=== PATIENT | female | born 1970 | race Caucasian/White ===

== ENCOUNTER → 2019-02-07 09:54 | Outpatient (CLI) | payer BC, SELFPAY | PROVIDERS: PCP Physician Assistant; Visit Provider Physician Assistant | DX: R00.2 Palpitations (principal) | CPT/HCPCS: 93005; 93225; 93226 ==

== ENCOUNTER → 2019-03-05 07:59 | Outpatient (CLI) | payer BC, SELFPAY | PROVIDERS: PCP Emergency Medicine; Visit Provider Internal Medicine | DX: R00.2 Palpitations (principal); R94.31 Abnormal electrocardiogram [ECG] [EKG] | CPT/HCPCS: 93017; 93306 ==

== ENCOUNTER → 2019-03-12 07:49 | Outpatient (CLI) | payer BC, SELFPAY ==
--- NOTE | 2019-03-12 07:50 | NM_ITS ---
SPECT MYOCARDIAL PERFUSION SCAN, REST AND STRESS: EXERCISE STRESS: [facility] REVIEW QGS EF AND WALL MOTION EVALUATION: QPS - PERFUSION EVALUATION: HISTORY: Abnormal GXT, Fatigue, Family History PROCEDURE: Rest imaging performed after administration of10.24 millicuries Tc MIBI. Dose administered at8:15 a.m., with imaging thereafter. Stress imaging was then performed following6 minutes 30 seconds of exercise stress. The patient achieved a heart [id number] with projected heart rate of145 . Resting BP161/82 with stress 178/70. At maximum exercise stress,32.8 millicuries Tc MIBI administered at9:15 a.m. with [id number] minutes thereafter. FINDINGS: Perfusion Evaluation: The single slice spect images as well as the [facility] bull's-eye data summary were reviewed. Wall Motion and Ejection Fraction Evaluation: Gated SPECT review and analysis used to evaluate these features. There is a 54 % left ventricular ejection fraction. The anterior apical wall appears mildly hypokinetic Stress images reveal decreased activity in the anterior wall while rest images reveal improved activity. IMPRESSION: Reversible ischemia in the anterior wall with normal ejection fraction with mild regional wall motion abnormality. High risk abnormal stress
--- NOTE | 2019-03-12 08:47 | HMH.ITSHM ---
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 []ASA BISOPROLOL
== END ==
PROVIDERS: PCP Physician Assistant; Visit Provider Internal Medicine
DX: I47.2 Ventricular tachycardia (principal); R00.2 Palpitations; R94.31 Abnormal electrocardiogram [ECG] [EKG]
CPT/HCPCS: 78452; 93017; A9502

== ENCOUNTER → 2019-03-14 10:52 | Outpatient (CLI) | payer BC, SELFPAY ==
--- NOTE | 2019-03-14 10:54 | MM_ITS ---
MM Dig screening mamm BI w/CAD ORDERING PHYSICIAN : DAVID Cuevas PATIENT AGE: 48 years GENDER: Female COMPARISON: February 2003 film screen; & April 2011 digital mammogram INDICATION: ITS.Routine: Screening mammogram No hormones. No new complaints. Family history. Maternal grandmother TECHNIQUE: Standard CC and MLO images were obtained. R2 CAD reviewed. FINDINGS: Low-density breast with generalized fatty replacement.. Only minimal residual fibroglandular elements extending towards upper outer quadrant of right and left breast. Stable tiny lymph nodes at the deep axillary tail left breast again observed . No dominant mass nor suspicious calcifications in either breast. Follow-up in one year adequate CAD computer review highlights no areas of concern either. --------- IMPRESSION: Stable mammogram. Low-density breastWith No significant change. No new areas of concern. Routine follow-up. BI-RADS Category: 1 Negative RECOMMENDED FOLLOW-UP: 1YR 1 YEAR FOLLOW-UP (A letter has been sent to the patient regarding results of the study.)
== END ==
PROVIDERS: PCP Physician Assistant; Visit Provider Physician Assistant
DX: Z12.31 Encounter for screening mammogram for malignant neoplasm of breast (principal)
CPT/HCPCS: 77067

== ENCOUNTER → 2019-05-01 11:25 | Outpatient (CLI) | payer BC, SELFPAY ==
--- NOTE | 2019-05-01 11:29 | XR_ITS ---
EXAM: XR thoracic spine 3V HISTORY: ITS.REASON: pain Comparison: None FINDINGS: Normal alignment. No fracture or dislocation. No lytic or blastic change. There are small anterior osteophytes in the midthoracic spine. No other significant degenerative changes evident. IMPRESSION: Mild degenerative change, no acute finding
== END ==
PROVIDERS: PCP Nurse Practitioner Family; Visit Provider Nurse Practitioner Family
DX: M54.6 Pain in thoracic spine (principal)
CPT/HCPCS: 72072

== ENCOUNTER 2019-05-13 07:48 | Outpatient (RCR) | payer BC, SELFPAY ==
--- NOTE | 2019-05-13 08:40 | HMH.PTOPEV ---
PT Outpatient Evaluation Rehab PT Outpatient Evaluation Start: 05/13/19 08:12 Freq: Status: Active Protocol: Document 05/13/19 08:29 BELEMANALISA (Rec: 05/13/19 08:39 BELEMANALISA [id number]) Electronically Signed By Geoff Kwok PT 05/13/19 08:29 Outpatient Therapy Subjective History Subjective History This is the initial Physical Therapy evaluation for America Stout. Pt is a 48 y/o female referred to PT for c/o L sided thoracic and L periscapular pain. Pt reports insidious onset of pain ~ 1 month ago. Pt reports she works at [employer] and does a repetitive job. Pt reports her work is the trigger and aggravating factor with her pain. Pt reports no cervical pain, no LUE pain. Chief Complaint Pain Symptom Type Sharp,Stabbing,Burning Symptoms Relieved By Rest/Positioning,Heat Symptoms Aggravated By Physical Activity Prior Functional Limitations None Current Functional Limitations Reaching,Lifting,Recreation Activity Symptom Description Intermittent Level of pain today (0-10) 0 Pain scale - at its best (0-10) 0 Pain scale - at its worst (0-10) 8 Cervical Eval Palpation Cervical Muscles L Thoracic Paraspinals Cervical/Thoracic Palpation Findings Tenderness,Spasm,Muscle Guarding MMT Bilateral Deltoid (C5) 4 Good Biceps Brachii Strength Grade 4 Good Wrist Extension Strength Grade 4 Good Triceps Brachii Strength Grade 4 Good Wrist Flexion Strength Grade 4 Good Special Test C-Spine Foraminal Compression (Spurling) Negative Left,Negative Right Test C-Spine Foraminal Distraction Test Negative C-Spine Compression Test Negative Left,Negative Right Shoulder/Elbow Eval Shoulder Objective Measurements Palpation Tenderness Shoulder Palpation Findings None/Normal Posture Shoulder Posture Sitting Position (L) Rounded,(R) Rounded Shoulder Posture Standing Position (L) Rounded,(R) Rounded Scapula Posture Sitting Position (L) Protracted,(R) Protracted Scapular Posture Standing Position (L) Protracted,(R) Protracted Shoulder ROM Bilateral full ROM shoulder exam standard bilateral Shoulder MMT Shoulder Strength Reason Not Measured WFL Elbow Objective Measurements Lumbopelvic Eval Posture Thoracic Spine Posture Standing Position Increased Kyphosis Lumbar Spine Posture Standing Position Flattened Assistive device Assistive Devices
== END 2019-05-13 07:50 | disposition home or self-care (01) ==
LOC: PT 07:48
PROVIDERS: Visit Provider Nurse Practitioner Family
DX: M54.2 Cervicalgia (principal); M25.511 Pain in right shoulder
CPT/HCPCS: 97163

== ENCOUNTER → 2019-12-31 11:14 | Outpatient (CLI) | payer BC, SELFPAY ==
[2019-12-31 11:31] LABS: Basophils % 0.5 % (0.1-2.0); Eosinophils # 0.1 K/mm3 (0.0-0.4); Eosinophils % 1.8 % (0.1-12.0); Hematocrit 33.4 % (37.0-47.0); Hemoglobin 10.7 g/dL (12.2-16.2); Lymphocytes # 1.4 K/mm3 (0.7-4.5); Lymphocytes % 34.2 % (10-50); Mean Corpuscular HGB Conc 32.1 g/dL (31.8-35.4); Mean Corpuscular Hemoglobin 28.3 pg (27.0-31.2); Mean Corpuscular Volume 88.1 fl (81-99); Mean Platelet Volume 9.2 fl (7.4-10.4); Monocytes # 0.3 K/mm3 (0.1-1.0); Monocytes % 6.4 % (1.7-9.3); Neutrophils # 2.3 K/mm3 (1.8-7.8); Neutrophils % 57.2 % (37.0-80.0); Platelet Count 186 K/mm3 (142-424); Red Cell Distribution Width 13.9 % (11.5-17.5)
[2019-12-31 14:22] LABS: Alanine Aminotransferase 17 U/L (9-52); Albumin Level 3.5 g/dL (3.4-5.0); Alkaline Phosphatase 76 U/L (46-116); Anion Gap 11.2 mEq/L (5-15); Aspartate Amino Transferase 20 U/L (15-37); Bilirubin,Direct 0.1 mg/dL (0.0-0.2); Bilirubin,Indirect 0.3 mg/dL (0.0-0.9); Bilirubin,Total 0.4 mg/dL (0.2-1.0); Blood Urea Nitrogen 9 mg/dL (7-18); Calcium 8.6 mg/dL (8.5-10.1); Carbon Dioxide 29 mmol/L (21.0-32.0); Chloride 108 mmol/L (98-107); Chol/HDL Ratio 3.5 (1-3.5); Cholesterol 166 mg/dL (140-200); Creatinine,Serum 0.68 mg/dL (0.55-1.02); Estimated Glomerular Filt Rate 92 ml/min (>60); GFR (African American) 111 ML/MIN (>60); Glucose 86 mg/dL (74-106); HDL Cholesterol 48 mg/dL (29-89); LDL Cholesterol 106 mg/dL (0-130); Potassium 4.2 mmoL/L (3.5-5.1); Sodium 144 mmol/L (137-145); Total Protein,Serum 6.9 g/dL (6.4-8.2); Triglycerides 62 mg/dL (30-200); VLDL Cholesterol 12 mg/dL (0-40)
== END ==
PROVIDERS: Visit Provider Physician Assistant
DX: R00.2 Palpitations (principal); I10 Essential (primary) hypertension; R94.39 Abnormal result of other cardiovascular function study; I34.0 Nonrheumatic mitral (valve) insufficiency
CPT/HCPCS: 36415; 80048; 80061; 80076; 85025

== ENCOUNTER → 2020-01-21 09:40 | Outpatient (CLI) | payer BC, SELFPAY ==
--- NOTE | 2020-01-21 09:46 | XR_ITS ---
PROCEDURE: XR CERVICAL SPINE 4V CLINICAL INDICATION: LUE numbness COMPARISON: No exams were available for comparison FINDINGS: There is mild degenerative disc disease at C5-C6. The remaining disc spaces are unremarkable. There is normal alignment. No fracture or dislocation. No obvious foraminal narrowing. IMPRESSION: Degenerative disc disease C5-C6 Dictated by: Aroldo Albarado MD 01/21/2020 11:35 Electronically signed by Aroldo Albarado MD in [place] 01/21/2020 11:35
[2020-01-21 18:01] LABS: T4 (Thyroxine) 8.8 ug/dl (5.53-11.0)
[2020-01-21 18:15] LABS: Thyroid Stimulating Hormone 3.81 uIU/mL (0.465-4.68)
[2020-01-23 12:17] LABS: Vitamin D 25 Hydroxy 6.9 ng/mL (30.0-100.0)
[2020-01-24 08:57] LABS: Vitamin B12 179 pg/mL (232-1245)
== END ==
PROVIDERS: PCP Physician Assistant; Visit Provider Physician Assistant
DX: R20.0 Anesthesia of skin (principal); M25.50 Pain in unspecified joint
CPT/HCPCS: 72050; 82607; 82652; 84436; 84443

== ENCOUNTER → 2020-01-29 08:45 | Outpatient (CLI) | payer BC, SELFPAY ==
[2020-01-29 09:34] LABS: Basophils % 0.3 % (0.1-2.0); Eosinophils # 0.1 K/mm3 (0.0-0.4); Eosinophils % 1.3 % (0.1-12.0); Hematocrit 34.8 % (37.0-47.0); Hemoglobin 10.9 g/dL (12.2-16.2); Lymphocytes # 2.5 K/mm3 (0.7-4.5); Lymphocytes % 33.1 % (10-50); Mean Corpuscular HGB Conc 31.5 g/dL (31.8-35.4); Mean Corpuscular Hemoglobin 27.7 pg (27.0-31.2); Mean Corpuscular Volume 87.8 fl (81-99); Mean Platelet Volume 7.8 fl (7.4-10.4); Monocytes # 0.6 K/mm3 (0.1-1.0); Monocytes % 8.3 % (1.7-9.3); Neutrophils # 4.2 K/mm3 (1.8-7.8); Neutrophils % 57.1 % (37.0-80.0); Platelet Count 232 K/mm3 (142-424); Red Blood Count 3.96 M/mm3 (4.20-5.40); Red Cell Distribution Width 14.6 % (11.5-17.5); White Blood Count 7.4 K/mm3 (4.8-10.8)
== END ==
PROVIDERS: Visit Provider Physician Assistant
DX: D64.9 Anemia, unspecified (principal)
CPT/HCPCS: 36415; 85025

== ENCOUNTER → 2020-02-17 09:01 | Outpatient (POV) | payer BC, SELFPAY | PROVIDERS: PCP Physician Assistant; Visit Provider Specialist | DX: M79.602 Pain in left arm (principal); R20.0 Anesthesia of skin; R20.2 Paresthesia of skin | CPT/HCPCS: 95886; 95908 ==

== ENCOUNTER 2020-02-18 08:30 | Outpatient (RCR) | payer BC, SELFPAY ==
--- NOTE | 2020-01-29 08:51 | HMH.PTOPEV ---
PT Outpatient Evaluation Rehab PT Outpatient Evaluation Start: 01/29/20 08:37 Freq: Status: Active Protocol: Document 01/29/20 08:38 SHASHI (Rec: 01/29/20 08:51 SHASHI [id number]) Electronically Signed By Stef Haque, PT 01/29/20 08:38 Outpatient Therapy Subjective History Subjective History Patient is a 49 year old female presenting to outpatient PT with reports of LUE radicular symptoms of insidious onset starting approximatley 1 month ago. Most recent imaging indicate C 5/6 DDD. Main complaint is I can't straighten my elbow out. Comorbidities include MVR. Chief Complaint Pain,Paresthesia Symptom Type Numbness,Tingling Symptoms Relieved By Rest/Positioning Symptoms Aggravated By Physical Activity Prior Functional Limitations None Current Functional Limitations Reaching,Lifting,Housework, Recreation Activity Symptom Description Constant but Variable Level of pain today (0-10) 0 Pain scale - at its best (0-10) 0 Pain scale - at its worst (0-10) 4 Cervical Eval Palpation Cervical Muscles L Upper Trapezius Posture Head/C-Spine Posture Sitting Position Excess Extension Head/C-Spine Posture Standing Position Excess Extension Flexibility Deficits Upper Trapezius Muscle Length (L) Moderate Tightness Levaetor Scapulae Muscle Length (L) Moderate Tightness Pectoralis Minor Muscle Length (L) Moderate Tightness Passive Joint Mobility Cervical PIVM WNL: R OA L OA R AA L AA R C2/3 L C2/3 R C3/4 L C3/4 R C4/5 L C4/5 R C5/6 L C5/6 R C6/7 L C6/7 R C7/T1 L C7/T1 AROM Cervical Spine Extension Active Range of 42 Motion (degrees) Cervical Spine Flexion Active Range of 62 Motion (degrees) Cervical Spine Right Lateral Flexion 35 Active Range of Motion (degrees) Cervical Spine Left Lateral Flexion 25 Active Range of Motion (degrees) Cervical Spine Right Rotation Active WNL
== END 2020-02-18 08:35 | disposition home or self-care (01) ==
LOC: PT 08:30
PROVIDERS: PCP Physician Assistant; Visit Provider Physician Assistant
DX: M50.30 Other cervical disc degeneration, unspecified cervical region (principal)
CPT/HCPCS: 97010; 97012; 97014; 97110; 97163; G0283

== ENCOUNTER → 2020-03-16 08:57 | Outpatient (CLI) | payer BC, SELFPAY ==
--- NOTE | 2020-03-16 08:57 | MM_ITS ---
PROCEDURE: MM DIG SCREENING MAMM BI W/CAD Digital Breast Tomosynthesis Included CLINICAL INDICATION: screening There is a history of breast cancer patient's maternal grandmother. COMPARISON: DIGMAMMS MAMMOGRAM SCREEN-DEPUTY FELONY CLERK N/C from 03/12/2003 [facility] DIGITAL MAMM-SCREEN BILATERAL from 04/25/2011 [facility] MM Dig screening mamm BI w/CAD from 03/14/2019 TECHNIQUE: Standard CC and MLO images and 3D Tomosynthesis was obtained. R2 CAD reviewed. FINDINGS: The breasts are composed primarily of fat with scattered fibroglandular densities throughout both breasts. There is a stable tiny nodular benign-appearing density near the axillary tail left breast likely a low-lying node. There is no suspicious lesion in either breast and no suspicious microcalcifications. IMPRESSION: Fatty type breast parenchyma with no suspicious lesions seen BI-RAD Category: 1 Negative FOLLOW-UP: 1YR 1 Year Follow-up (A letter has been sent to the patient regarding results of the study.) Dictated by: Dr. Pa Diana MD 03/16/2020 10:[address] Pa Diana MD in [place] 03/16/2020 10:29
== END ==
PROVIDERS: PCP Physician Assistant; Visit Provider Physician Assistant
DX: Z12.31 Encounter for screening mammogram for malignant neoplasm of breast (principal)
CPT/HCPCS: 77063; 77067

== ENCOUNTER → 2020-07-07 10:16 | Outpatient (CLI) | payer BC, SELFPAY ==
[2020-07-07 11:35] LABS: Blood Urea Nitrogen 8 mg/dl (7-17); Calcium 9.1 mg/dl (8.4-10.2); Carbon Dioxide 29 mmol/L (22.0-30.0); Chloride 104 mmol/L (98-107); Estimated Glomerular Filt Rate 89 ml/min (>60); GFR (African American) 107 ML/MIN (>60); Glucose 99 mg/dl (74-100); Sodium 138 mmol/L (136-145)
== END ==
PROVIDERS: Visit Provider Nurse Practitioner Family
DX: R60.0 Localized edema (principal); I10 Essential (primary) hypertension; I51.89 Other ill-defined heart diseases
CPT/HCPCS: 36415; 80048

== ENCOUNTER → 2020-07-20 09:21 | Outpatient (CLI) | payer BC, SELFPAY ==
[2020-07-20 10:13] LABS: Anion Gap 10.9 mEq/L (5-15); Blood Urea Nitrogen 9 mg/dl (7-17); Calcium 8.7 mg/dl (8.4-10.2); Carbon Dioxide 28 mmol/L (22.0-30.0); Chloride 105 mmol/L (98-107); Estimated Glomerular Filt Rate 88 ml/min (>60); GFR (African American) 107 ML/MIN (>60); Glucose 99 mg/dl (74-100); Potassium 3.9 mmoL/L (3.5-5.1); Sodium 140 mmol/L (136-145)
[2020-07-20 10:22] LABS: NT Pro Brain Natriuretic Pep. 212 pg/mL (0-125)
== END ==
PROVIDERS: Visit Provider Physician Assistant
DX: R60.0 Localized edema (principal); I10 Essential (primary) hypertension; I51.89 Other ill-defined heart diseases
CPT/HCPCS: 36415; 80048; 83880

== ENCOUNTER → 2020-07-28 09:45 | Outpatient (CLI) | payer BC, SELFPAY ==
[2020-07-28 11:14] LABS: Chloride 104 mmol/L (98-107); Sodium 140 mmol/L (136-145)
[2020-07-28 11:15] LABS: Potassium 4.3 mmoL/L (3.5-5.1)
[2020-07-28 11:17] LABS: Anion Gap 14.3 mEq/L (5-15); Blood Urea Nitrogen 8 mg/dl (7-17); Carbon Dioxide 26 mmol/L (22.0-30.0); Estimated Glomerular Filt Rate 88 ml/min (>60); GFR (African American) 107 ML/MIN (>60)
[2020-07-28 11:18] LABS: Calcium 9.3 mg/dl (8.4-10.2); Glucose 100 mg/dl (74-100)
[2020-07-28 11:25] LABS: NT Pro Brain Natriuretic Pep. 156 pg/mL (0-125)
== END ==
PROVIDERS: Visit Provider Physician Assistant
DX: I50.33 Acute on chronic diastolic (congestive) heart failure (principal); I11.0 Hypertensive heart disease with heart failure; R60.0 Localized edema
CPT/HCPCS: 36415; 80048; 83880

== ENCOUNTER → 2021-03-26 15:00 | Outpatient (CLI) | payer BC, SELFPAY ==
--- NOTE | 2021-03-26 15:02 | CA_ITS ---
APPROVED REPORT EXAM: Comprehensive 2D, Doppler, and color-flow Echocardiogram Wrapping Checker: Tiffanie Almendarez RT(R) Ht: 5 ft 3 in Wt: 217lbs BSA: 2.00 BP: 137/73 mmHg Indications: DD, Palpitations, HTN, MR 2D Dimensions LVOT 1.91 cm (M/F) 1.5-2.5 LA Volume 62.90 mL LA Volume Index 31.45 mL/m2 (M/F) 16-34 M-Mode Dimensions RVDd 3.15 cm (0.9-2.6) LA Diam 3.93 cm (1.9-4.0) LVDd 5.28 cm (3.5-5.7) Ao Diam 2.59 cm (2.0-3.7) LVDs 3.91 cm (3.5-5.7) IVSd 0.80 cm (0.6-1.1) PWd 0.91 cm (0.6-1.1) EF (Teich) 50.60% FS 25.90% EDV (Teich) 134.20 mL ESV (Teich) 66.30 mL LV Diastology E Decel Time 270.00 (160-240 msec) E/A Ratio 1.2 MED E' 6.60 (< 7 cm/sec) E'/MED E' Ratio 21.94 (>14) LAT E' 12.60 (<10 cm/sec) E/LAT E' Ratio 11.49 (>14) Aortic Valve AI PHT 461.00 ms Mitral Valve MV E Max Hermilo. 145.00 (40-130 cm/s) MV A Velocity 118.00 (40-130 cm/s) E/A Ratio 1.23 MV Decel. Time 270.00 (160-240 ms) MV PHT 79.00 ms Tricuspid Valve TR P. Velocity 259.00 cm/s RAP Estimate 10.00 mmHg RVSP 36.80 mmHg Left Ventricle Left atrium is mildly enlarged, left ventricle is normal size, left ventricle wall thickness is upper limit of normal, there is preserved left ventricular systolic function, visually estimated ejection fraction 55% with no regional wall motion abnormality, diastolic parameters are inconclusive. Right Ventricle Right atrium and right ventricle are mildly enlarged with normal contractility. Aortic Valve Aortic valve is minimally thickened and fibrosed there is no aortic stenosis, there is mild aortic insufficiency. Mitral Valve Mitral valve leaflets are minimally thickened, there is no mitral stenosis, there is mild mitral regurgitation. Tricuspid Valve Tricuspid grossly normal, there is mild tricuspid regurgitation, calculated right ventricular systolic pressure 36 mmHg assuming right atrial pressure of 10 mmHg. Pulmonic Valve Pulmonic valve is poorly visualized. Great Vessels Aortic root is normal size. Pericardium No significant pericardial effusion noted. Conclusion 1. Mild biatrial alignment, normal left ventricular size, preserved left ventricular systolic function, visually estimated ejection fraction 55% with no regional wall motion abnormality, diastolic parameters are inconclusive. 2. Mildly enlarged right ventricle with normal contractility. 3. Mild aortic, mild mitral and tricuspid regurgitation, calculated right ventricular systolic pressure is 36 mmHg. 4. No significant pericardial effusion noted. Electronically signed by : César Meyers, 03/26/2021 18:48:56
== END ==
LOC: RT 15:01
PROVIDERS: PCP Physician Assistant; Visit Provider Urology
DX: I34.0 Nonrheumatic mitral (valve) insufficiency (principal); R60.0 Localized edema; I10 Essential (primary) hypertension
CPT/HCPCS: 93306

== ENCOUNTER 2022-01-25 16:51 | Emergency (ER) | payer BC, SELFPAY ==
[2022-01-25 16:52] VITALS: BP 168/78; PULSE 72; RESP 16; TEMP 37.1; O2SAT 100; BMI 38.9
--- NOTE | 2022-01-25 16:52 | ECG_ITS ---
APPROVED REPORT Exam: Resting ECG HR:75 bpm ECG Measurements Heart Rate 75 AXES HI 202 P 49 QRSd 98 QRS 40 QT 382 T 54 QTc 410 Conclusion SINUS RHYTHM NORMAL ECG UNCONFIRMED REPORT Electronically signed by : Jared Mckenna MD 01/26/2022 17:50:46
[2022-01-25 16:53] VITALS: BMI 38.9
--- NOTE | 2022-01-25 16:54 | XR_ITS ---
PROCEDURE INFORMATION: Exam: XR Chest Exam date and time: 01/25/2022 4:54 PM Age: 51 years old Clinical indication: Sternal or substernal pain; Patient HX: Patient developed chest pain while at work. TECHNIQUE: Imaging protocol: XR of the chest. Views: 1 view. COMPARISON: CR XR CHEST 2V 02/07/2020 8:21 PM FINDINGS: Lungs: Unremarkable. No consolidation. Pleural spaces: Unremarkable. No pleural effusion. No pneumothorax. Heart/Mediastinum: Unremarkable. No cardiomegaly. Bones/joints: Unremarkable. IMPRESSION: No acute findings.
--- NOTE | 2022-01-25 17:02 | HMH.EDGENADL ---
ED Disposition Clinical Impression: Atypical chest pain, Palpitations Disposition: Home, Self-Care Condition on Discharge: Good Instructions: DI for Atypical Chest Pain, DI for Palpitations Additional Instructions: Follow-up with Dr. Muñoz in the office. Call tomorrow to make appointment. Additional instructions for CHEST PAIN: See your physician as soon as possible for further evaluation. Return immediately if worsening chest pain, vomiting, shortness of breath, fever, coughing of blood. Referrals: Jorge Ortega MD [Primary Care Provider] - - Critical Care Critical Care Time: No Attestation: On 01/25/22, the high probability of a clinically significant, sudden or life threatening deterioration of the following system(s) required my full and direct attention, intervention and personal management. The time I documented below is in addition to time spent performing reported procedures but includes the following listed in this critical care notation. Medical Decision Making - Medical Records Medical records reviewed: Yes: I reviewed the patient's medical records. MR Comment: Reviewed most recent cardiology clinic note 09/13/2021. Reviewed most recent echocardiogram result ejection fraction 55% 03/26/2021. Reviewed most recent heart cath results, normal coronary arteries 02/20/2020. Reviewed prior Holter monitor result 02/07/19, ectopic beats, but no significant arrhythmias. - Artur Inquiry Pt receiving controlled substance: No Vital Signs: 01/25/22 16:52 01/25/22 17:16 Temperature 98.8 F Temperature Source Oral Pulse Rate 72 Pulse Rate [Right Radial] 72 Respiratory Rate 16 14 Blood Pressure 186/97 H Blood Pressure [Right Arm] 168/78 H Blood Pressure Mean 126 Blood Pressure Mean [Right Arm] 108 Blood Pressure Source [Right Arm] Automatic Cuff Blood Pressure Position [Right Arm] Sitting 02 Sat by Pulse Oximetry 100 100 Oxygen Delivery Method Room Air - Lab Data Lab Results 01/25/22 16:56: WBC 4.4 L, RBC 4.03 L, Hgb 11.2 L, Hct 34.7 L, MCV 86.1, MCH 27.8, MCHC 32.3, RDW 15.3, Plt Count 229, MPV 9.9, Neut % (Auto) 56.8, Lymph % (Auto) 35.3, [place] % (Auto) 5.9, Eos % (Auto) 1.3, Baso % (Auto) 0.7, Neut # (Auto) 2.5, Lymph # (Auto) 1.6, [place] # (Auto) 0.3, Eos # (Auto) 0.1, Baso # (Auto) 0.0 01/25/22 16:56: Sodium 136, Potassium 3.9, Chloride 102, Carbon Dioxide 27, Anion Gap 10.9, BUN 12, Creatinine 0.80, Estimated Creat Clear 125, Estimated GFR 75, Est GFR ( Amer) 91, Glucose 91, Calcium 8.8, Troponin I < 0.01 Result diagrams: 01/25/22 16:56 01/25/22 16:56 Orders (Tests/Meds): ED MEDICATIONS Generic Name Dose Route Start Last Admin Trade Name Freq PRN Reason Stop Dose Admin Sodium Chloride 10 ml 01/25/22 16:54 Sodium Chloride 0.9% 10ml Flush Syringe IV 02/24/22 16:53 NEEDED PRN Maintain IV Site Discontinued Medications Generic Name Dose Route Start Last Admin Trade Name Freq PRN Reason Stop Dose Admin Aspirin 243 mg 01/25/22 16:54 01/25/22 16:59 Aspirin 81mg Chewable Tablet PO 01/25/22 16:55 243 mg ONCE ONE Administration ORDERS Category Date Time Status Troponin I Q3H Lab 01/25/22 20:00 Ordered Troponin I Q3H Lab 01/25/22 23:00 Ordered - Radiology Data #1 Image(s): Chest Image Reviewed: Yes I reviewed the patient's radiology image, Yes I have reviewed radiologist's interpretation Preliminary Findings: Normal/NAD PROCEDURE INFORMATION: Exam: XR Chest Exam date and time: 01/25/2022 4:54 PM Age: 51 years old Clinical indication: Sternal or substernal pain; Patient HX: Patient developed chest pain while at work. TECHNIQUE: Imaging protocol: XR of the chest. Views: 1 view. COMPARISON: CR XR CHEST 2V 02/07/2020 8:21 PM FINDINGS: Lungs: Unremarkable. No consolidation. Pleural spaces: Unremarkable. No pleural effusion. No pneumothorax. Heart/Mediastinum: Unremarkable. No cardiomegaly. Bones
[2022-01-25 17:04] LABS: Basophils % 0.7 % (0.1-2.0); Eosinophils # 0.1 K/mm3 (0.0-0.4); Eosinophils % 1.3 % (0.1-12.0); Hematocrit 34.7 % (37.0-47.0); Hemoglobin 11.2 g/dL (12.2-16.2); Lymphocytes # 1.6 K/mm3 (0.7-4.5); Lymphocytes % 35.3 % (10-50); Mean Corpuscular HGB Conc 32.3 g/dL (31.8-35.4); Mean Corpuscular Hemoglobin 27.8 pg (27.0-31.2); Mean Corpuscular Volume 86.1 fl (81-99); Mean Platelet Volume 9.9 fl (7.4-10.4); Monocytes # 0.3 K/mm3 (0.1-1.0); Monocytes % 5.9 % (1.7-9.3); Neutrophils # 2.5 K/mm3 (1.8-7.8); Neutrophils % 56.8 % (37.0-80.0); Platelet Count 229 K/mm3 (142-424); Red Blood Count 4.03 M/mm3 (4.20-5.40); Red Cell Distribution Width 15.3 % (11.5-17.5); White Blood Count 4.4 K/mm3 (4.8-10.8)
[2022-01-25 17:13] LABS: Chloride 102 mmol/L (98-107); Potassium 3.9 mmoL/L (3.5-5.1); Sodium 136 mmol/L (136-145)
[2022-01-25 17:16] VITALS: BP 186/97; PULSE 72; RESP 14; O2SAT 100
[2022-01-25 17:16] LABS: Anion Gap 10.9 mEq/L (5-15); Blood Urea Nitrogen 12 mg/dl (7-17); Carbon Dioxide 27 mmol/L (22.0-30.0); Creatinine Clearance Estimated 125 mL/min (50-200); Estimated Glomerular Filt Rate 75 ml/min (>60); GFR (African American) 91 ML/MIN (>60); Glucose 91 mg/dl (74-100)
[2022-01-25 17:17] LABS: Calcium 8.8 mg/dl (8.4-10.2)
[2022-01-25 17:29] LABS: Troponin I < 0.01 ng/ml (0.00-0.034)
[2022-01-25 17:31] VITALS: BP 199/91; PULSE 64; RESP 11; O2SAT 100
[2022-01-25 18:18] VITALS: BP 151/86; PULSE 68; RESP 16; TEMP 36.8; O2SAT 99
== END 2022-01-25 18:20 | disposition home or self-care (01) ==
PROVIDERS: Emergency Provider Emergency Medicine; PCP Emergency Medicine
DX: R07.89 Other chest pain (principal); R00.2 Palpitations; R51.9 Headache, unspecified; I10 Essential (primary) hypertension; F41.9 Anxiety disorder, unspecified; Z79.899 Other long term (current) drug therapy
CPT/HCPCS: 71045; 80048; 84484; 85025; 93005; 99283

== ENCOUNTER → 2022-09-27 14:16 | Outpatient (CLI) | payer BC, SELFPAY ==
--- NOTE | 2022-09-27 14:16 | MM_ITS ---
PROCEDURE INFORMATION: Exam: MG Bilateral Screening 3D Mammography Exam date and time: 09/27/2022 2:13 PM Age: 52 years old Clinical indication: Screening examination. Her maternal grandmother had breast cancer at age 58. TECHNIQUE: Imaging protocol: Bilateral Screening tomosynthesis and 2D mammography including computer-aided detection (CAD) when performed. COMPARISON: 1. MG MM DIG SCREENING MAMM BI W/CAD 03/16/2020 9:03 AM 2. MG [facility] MM Dig screening mamm BI w/CAD 03/14/2019 11:04 AM 3. MG [facility] DIGITAL MAMM-SCREEN BILATERAL 04/25/2011 9:09 AM 4. 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 Mass: None. Architectural distortion: None. Calcifications: No suspicious calcifications. Asymmetric density: None. Skin thickening: None. Axillary adenopathy: None. IMPRESSION: No mammographic evidence of malignancy. Annual screening is recommended unless otherwise clinically indicated. ASSESSMENT: BI-RADS Category 1: Negative
== END ==
PROVIDERS: PCP Physician Assistant; Visit Provider Physician Assistant
DX: Z12.31 Encounter for screening mammogram for malignant neoplasm of breast (principal)
CPT/HCPCS: 77063; 77067

== ENCOUNTER 2022-11-09 16:37 | Emergency (ER) | payer OTHER, BC, SELFPAY ==
--- NOTE | 2022-11-09 16:56 | XR_ITS ---
PROCEDURE INFORMATION: Exam: XR Right Knee Exam date and time: 11/09/2022 4:55 PM Age: 52 years old Clinical indication: Pain; Knee; Right; Additional info: Fall TECHNIQUE: Imaging protocol: Radiologic exam of the Right knee. Views: 3 views. COMPARISON: No relevant prior studies available. FINDINGS: Bones/joints: No acute fracture or dislocation. Slight patchy periarticular demineralization of bones. No focal lytic lesions. Mild medial knee joint space narrowing suggesting underlying chondromalacia. Small medial femoral and tibial periarticular spurs. A normal fabella noted. Lateral joint space is well preserved. Likely mild narrowing of patellofemoral joint (however, no sunrise view performed, limiting evaluation of the patellofemoral joint space) . There are small patellar periarticular spurs. Small knee joint effusion. Soft tissues: Soft tissue edema, swelling. No radiopaque foreign bodies. No pathologic soft tissue calcification. IMPRESSION: 1. No acute fracture or dislocation. 2. Mild degenerative changes in the medial knee and in the patellofemoral joint. 3. Small knee joint effusion.
[2022-11-09 17:21] VITALS: BP 155/76; PULSE 68; RESP 16; TEMP 36.6; O2SAT 100; BMI 39.8
--- NOTE | 2022-11-09 17:21 | EXP.UTC ---
Discharge Plan Disposition Patient Disposition: Home, Self-Care Condition: Good Prescriptions Prescriptions: No Action furosemide [Lasix] 40 mg tablet 20 mg PO .MWF Qty: 15 4RF bisoprolol fumarate 10 mg tablet 10 mg PO DAILY Qty: 30 5RF spironolactone [Aldactone] 25 mg tablet 25 mg PO DAILY Qty: 90 3RF aspirin 81 MG tablet,delayed release (DR/EC) 81 mg PO DAILY Referrals Follow up/Referrals: Deven Lutz JR, MD [Physician] - See instructions Anne-Marie Kulkarni PA [Primary Care Provider] - See instructions Activity Restrictions/Add. Instructions Additional Instructions/Restrictions: Rest the extremity, apply ice for 15 minutes as tolerated three or four times per day, Wear the sunil wrap for compression, Elevate the extremity as tolerated while you are resting. Take ibuprofen for pain. I sent in a prescription to your pharmacy. Follow up with Dr. Lutz (orthopedics). I put in a referral but you need to call his office and schedule an appointment. Follow up with your regular doctor. 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 She states that she twisted her right knee when she fell. She c/o right knee pain that is worse with walking and bearing weight. Related Data Home Medications Medication Instructions Recorded Confirmed aspirin 81 mg tablet,delayed 81 mg PO DAILY HEART 04/25/19 02/09/22 release Previous Rx's Medication Instructions Recorded furosemide 40 mg tablet (Lasix) 20 mg PO .MWF #15 tabs 07/30/21 bisoprolol fumarate 10 mg tablet 10 mg PO DAILY HEART #30 tabs 08/26/22 spironolactone 25 mg tablet 25 mg PO DAILY #90 tabs 10/18/22 (Aldactone) Allergies Allergy/AdvReac Type Severity Reaction Status Date / Time codeine [CODEINE] Allergy Mild VOMITING Verified 02/09/22 13:47 [facility] Disclaimer: The information contained in this section may have been updated after the patient was seen, as this information can be updated by other users. Medical History Abnormal stress test Bradycardia Holter monitor, abnormal Social History Smoking Status: Never smoker second hand exposure: No alcohol intake: never substance use type: denies use current occupational status: employed Travel in the last 8 weeks: Inside the [place] household members: spouse housing: house current occupational exposures/hazards: No ROS Obtained: Yes All systems reviewed & no additional complaints except as documented Constitutional Constitutional: Denies chills and Denies fever(s) Integumentary/Breasts Skin/Breast: Denies redness, Denies rash and Denies wounds Neurologic Neurologic: Denies paresthesias Physical Exam General General appearance: alert and in no apparent distress Head Head exam: atraumatic, normocephalic and normal inspection Eye Eye exam: Present normal appearance, PERRL and EOMI ENT ENT exam: Present normal exam, normal oropharynx, mucous membranes moist, TM's normal bilaterally and normal external ear exam Neck Neck exam: Present normal inspection, full ROM and trachea midline; Absent meningismus or lymphadenopathy Chest Chest inspection: Present normal inspection and symmetric chest wall rise; Absent tenderness Respiratory Respiratory exam: Present normal lung sounds bilaterally; Absent respiratory distress Cardiovascular Cardiovascular exam: Present regular rate and normal rhythm; Absent JVD Abdominal Exam Abdominal exam: Present soft and normal bow
[2022-11-09 18:55] VITALS: BP 155/76; PULSE 68; RESP 16; TEMP 36.6
== END 2022-11-09 18:57 | disposition home or self-care (01) ==
PROVIDERS: Emergency Provider Nurse Practitioner Family; PCP Physician Assistant
DX: S83.91XA Sprain of unspecified site of right knee, initial encounter (principal)
CPT/HCPCS: 73562; 99212; G0463

== ENCOUNTER → 2023-02-24 11:22 | Outpatient (CLI) | payer BC, SELFPAY ==
[2023-02-24 12:20] LABS: Chloride 105 mmol/L (98-107); Potassium 4.3 mmoL/L (3.5-5.1); Sodium 138 mmol/L (136-145)
[2023-02-24 12:23] LABS: Blood Urea Nitrogen 10 mg/dl (7-17); Estimated Glomerular Filt Rate 75 ml/min (>60); GFR (African American) 91 ML/MIN (>60)
[2023-02-24 12:24] LABS: Anion Gap 9.3 mEq/L (5-15); Calcium 8.7 mg/dl (8.4-10.2); Carbon Dioxide 28 mmol/L (22.0-30.0); Glucose 96 mg/dl (74-100)
== END ==
PROVIDERS: PCP Physician Assistant; Visit Provider Physician Assistant
DX: I10 Essential (primary) hypertension (principal); I34.0 Nonrheumatic mitral (valve) insufficiency; I51.89 Other ill-defined heart diseases
CPT/HCPCS: 36415; 80048

== ENCOUNTER 2023-08-14 08:57 | Emergency (ER) | payer OTHER, BC, SELFPAY ==
--- NOTE | 2023-08-14 09:01 | XR_ITS ---
FINAL REPORT CLINICAL HISTORY: hit it on a step FINDINGS: Two views of the left tibia-fibula demonstrate no acute fracture or dislocation. The joint spaces appear normal. The visualized bony structures are well aligned. No soft tissue abnormality is seen. IMPRESSION: No acute process. Reviewed, Interpreted and Dictated by Jud Santoyo MD Transcribed by Morgan Buchanan Authenticated and [facility]
[2023-08-14 09:05] VITALS: BP 156/77; PULSE 61; RESP 20; TEMP 36.8; O2SAT 99; BMI 43.3
--- NOTE | 2023-08-14 09:24 | EXP.UTC ---
Discharge Plan Disposition Patient Disposition: Home, Self-Care Condition: Good Prescriptions Prescriptions: No Action losartan 50 mg tablet 50 mg PO DAILY spironolactone [Aldactone] 25 mg tablet 25 mg PO DAILY bisoprolol fumarate 10 mg tablet 10 mg PO DAILY aspirin 81 MG tablet,delayed release (DR/EC) 81 mg PO DAILY Referrals Follow up/Referrals: Anne-Marie Kulkarni PA [Primary Care Provider] - See instructions Activity Restrictions/Add. Instructions Additional Instructions/Restrictions: *weight bearing as tolerated *RICE, Rest the extremity, Ice 15-20 minutes 3-4 times daily, Compress- wear the rick wrap as discussed as much as possible to help reduce swelling and pain, Elevate the extremity when at rest *Rick wrap is for support and help control swelling, use it except in the shower. Be sure that is not to tight but not to loose either *Elevate when resting? *Ibuprofen 600-800mg every 6-8 hours as needed for pain an inflammation. If need something more can take Tylenol in between doses of Ibuprofen to help Immediately follow up with your family doctor for new or worsening of symptoms, or no noticeable improvement over the next 3-5 days Clinical Impressions Clinical Impression: Hematoma Stand Alone Forms Stand Alone Forms: Work/School Release Instructions Patient Instructions: Easy Bruising (Alternative Therapy), DI for Hematoma (Bruise), How To Perform RICE (Rest, Ice, Compress, Elevate) Discharge ED Provider: Zamzam Garcia [facility] HPI General Stated complaint: WC9/21, pain in Lt leg Mode of Arrival: Ambulatory Source of Information: Patient Limitations: No Limitations Time Seen by Provider: 08/14/23 09:24 Description of Symptoms (Recalled from Triage Doc. by RN): PATIENT C/O INJURY TO LEFT LOWER LEG AFTER FALLING AT WORK ON MONDAY. BRUISING NOTED TO LEFT LOWER LEG AND ANKLE. PATIENT REPORTS TAKING A DAILY ASPIRIN HEENT Symptoms (Recalled from RN notes): No Resp Symptoms (Recalled from RN notes): No Skin Symptoms (Recalled from RN notes): No MS Symptoms (Recalled from RN notes): Yes Functional Status (Recalled from RN notes): WNL History of Present Illness Provider Complaint: Patient states that she was at work on and they was doing hearing tests and she was walking up metal steps to go into the area of testing and she fell States that she was fine that day just the area was sore and bruised States that over the weekend the bruising and swelling was worse States that she has been putting ice on it but today it was more sore and hurt to the touch so she came in to get it checked out Related Data Home Medications Medication Instructions Recorded Confirmed aspirin 81 mg tablet,delayed 81 mg PO DAILY Leaky Valve 04/25/19 08/14/23 release bisoprolol fumarate 10 mg tablet 10 mg PO DAILY Leaky Valve 08/14/23 08/14/23 losartan 50 mg tablet 50 mg PO DAILY Leaky Valve 08/14/23 08/14/23 spironolactone 25 mg tablet 25 mg PO DAILY Leaky Valve 08/14/23 08/14/23 (Aldactone) Allergies Allergy/AdvReac Type Severity Reaction Status Date / Time codeine [CODEINE] Allergy Mild VOMITING Verified 04/11/23 14:27 Worker's Comp Is this a Worker's Comp case?: No [facility] Disclaimer: The information contained in this section may have been updated after the patient was seen, as this information can be updated by other users. Medical History (Updated 08/14/23 @ 10:05 by Zamzam Garcia APRN) Abnormal stress test Bradycardia Holter monitor, abnormal Hypertension Surgical History (Updated 08/14/23 @ 09:21 by Arcelia Bolanos RN) History of cardiac cath History of tubal ligation Social History Smoking Status: Never smoker second hand exposure: No alcohol intake: never substance use type: denies use current occupational status: employed Travel in the last 8 weeks: Inside the [facility]
[2023-08-14 10:05] VITALS: BP 156/77; PULSE 61; RESP 20; TEMP 36.8; O2SAT 99
== END 2023-08-14 10:07 | disposition home or self-care (01) ==
PROVIDERS: Emergency Provider Nurse Practitioner; PCP Physician Assistant
DX: S80.12XA Contusion of left lower leg, initial encounter (principal); I10 Essential (primary) hypertension; R94.30 Abnormal result of cardiovascular function study, unspecified; W10.8XXA Fall (on) (from) other stairs and steps, initial encounter
CPT/HCPCS: 73590; 99212; 99214; G0463

== ENCOUNTER → 2023-09-16 08:23 | Outpatient (CLI) | payer BC, SELFPAY ==
[2023-09-16 09:05] LABS: Basophils % 0.1 % (0.1-2.0); Eosinophils # 0.1 K/mm3 (0.0-0.4); Eosinophils % 1.7 % (0.1-12.0); Hematocrit 31.7 % (37.0-47.0); Hemoglobin 10.6 g/dL (12.2-16.2); Lymphocytes # 1.4 K/mm3 (0.7-4.5); Lymphocytes % 37.3 % (10-50); Mean Corpuscular HGB Conc 33.6 g/dL (31.8-35.4); Mean Corpuscular Hemoglobin 28.9 pg (27.0-31.2); Mean Corpuscular Volume 86.2 fl (81-99); Mean Platelet Volume 8.3 fl (7.4-10.4); Monocytes # 0.2 K/mm3 (0.1-1.0); Monocytes % 6.3 % (1.7-9.3); Neutrophils % 54.6 % (37.0-80.0); Platelet Count 205 K/mm3 (142-424); Red Blood Count 3.68 M/mm3 (4.20-5.40); Red Cell Distribution Width 15.2 % (11.5-17.5); White Blood Count 3.7 K/mm3 (4.8-10.8)
[2023-09-16 09:51] LABS: Alanine Aminotransferase 23 U/L (12-78); Albumin Level 4.1 g/dl (3.5-5.0); Alkaline Phosphatase 80 U/L (38-126); Anion Gap 12.3 mEq/L (5-15); Aspartate Amino Transferase 32 U/L (14-36); Bilirubin,Direct 0.1 mg/dl (0.0-0.4); Bilirubin,Indirect 0.4 mg/dL (0.0-0.9); Bilirubin,Total 0.5 mg/dl (0.2-1.3); Bilirubin,Unconjugated 0.4 mg/dL (0.0-1.1); Blood Urea Nitrogen 11 mg/dl (7-17); Calcium 9.4 mg/dl (8.4-10.2); Carbon Dioxide 26 mmol/L (22.0-30.0); Chloride 106 mmol/L (98-107); Chol/HDL Ratio 3.5 (1-3.5); Cholesterol 164 mg/dl (140-200); Estimated Glomerular Filt Rate 75 ml/min (>60); GFR (African American) 90 ML/MIN (>60); Glucose 96 mg/dl (74-100); HDL Cholesterol 47 mg/dl (40-60); Potassium 4.3 mmoL/L (3.5-5.1); Sodium 140 mmol/L (136-145); Total Protein,Serum 7.2 g/dl (6.3-8.2); Triglycerides 54 mg/dl (30-150); VLDL Cholesterol 11 mg/dL (0-40)
[2023-09-16 10:02] LABS: Direct LDL Cholesterol 101.92 mg/dL (100-129)
[2023-09-16 10:07] LABS: Free T4 (Free Thyroxine) 0.86 ng/dl (0.78-2.19)
[2023-09-16 10:22] LABS: Thyroid Stimulating Hormone 2.31 uIU/mL (0.465-4.68)
== END ==
PROVIDERS: PCP Physician Assistant; Visit Provider Physician Assistant
DX: R06.00 Dyspnea, unspecified (principal); I11.9 Hypertensive heart disease without heart failure; I34.0 Nonrheumatic mitral (valve) insufficiency; I51.89 Other ill-defined heart diseases; I63.9 Cerebral infarction, unspecified; E11.9 Type 2 diabetes mellitus without complications
CPT/HCPCS: 36415; 80048; 80061; 80076; 84439; 84443; 85025

== ENCOUNTER 2024-01-02 10:11 | Outpatient (CLI) | payer BC, SELFPAY ==
--- NOTE | 2024-01-02 10:17 | MM_ITS ---
PROCEDURE INFORMATION: Exam: MG Bilateral Screening 3D Mammography Exam date and time: 01/02/2024 10:14 AM Age: 53 years old Clinical indication: Screening examination TECHNIQUE: Imaging protocol: Bilateral Screening tomosynthesis and 2D mammography including computer-aided detection (CAD) when performed. COMPARISON: 1. MG MM DIG SCREENING MAMM BI W/CAD 09/27/2022 2:13 PM 2. MG MM DIG SCREENING MAMM BI W/CAD 03/16/2020 9:03 AM FINDINGS: MAMMOGRAPHY: Breast composition: There are scattered areas of fibroglandular density. Mass: None. Architectural distortion: None. Calcifications: No suspicious calcifications. Asymmetric density: None. Skin thickening: None. Axillary adenopathy: None. IMPRESSION: No mammographic evidence of malignancy. Annual screening is recommended unless otherwise clinically indicated. ASSESSMENT: BI-RADS Category 1: Negative
== END 2024-01-02 23:59 ==
LOC: RAD 10:11
PROVIDERS: PCP Physician Assistant; Visit Provider Physician Assistant
DX: Z12.31 Encounter for screening mammogram for malignant neoplasm of breast (principal)
CPT/HCPCS: 77063; 77067

== ENCOUNTER 2024-03-20 15:59 | Outpatient (CLI) | payer BC, SELFPAY ==
--- NOTE | 2024-03-20 16:06 | XR_ITS ---
FINAL REPORT CLINICAL HISTORY: right knee pain FINDINGS: Right knee THREE VIEW FINDINGS: Three views show no evidence of an acute, displaced fracture or dislocation of the visualized bony architecture. Mild degenerative joint disease is present. IMPRESSION: Degenerative changes. No acute bony abnormality . Authenticated and ERN
== END 2024-03-20 23:59 | disposition home or self-care (01) ==
LOC: RAD 16:00
PROVIDERS: PCP Physician Assistant; Visit Provider Family Medicine
DX: M25.561 Pain in right knee (principal); S83.91XA Sprain of unspecified site of right knee, initial encounter
CPT/HCPCS: 73562

== ENCOUNTER 2024-12-19 15:03 | Outpatient (CLI) | payer BC, SELFPAY ==
[2024-12-19 17:59] LABS: Coronavirus 19, PCR Not Detected (NotDetected); Influenza A, PCR Not Detected (NotDetected); Influenza B, PCR Not Detected (NotDetected)
[2024-12-19 18:07] LABS: Basophils % 0.6 % (0.1-2.0); Eosinophils # 0.3 K/mm3 (0.0-0.4); Eosinophils % 4.7 % (0.1-12.0); Hematocrit 32.1 % (37.0-47.0); Hemoglobin 9.7 g/dL (12.2-16.2); Lymphocytes # 1.3 K/mm3 (0.7-4.5); Lymphocytes % 24.8 % (10-50); Mean Corpuscular HGB Conc 30.2 g/dL (31.8-35.4); Mean Corpuscular Hemoglobin 25.6 pg (27.0-31.2); Mean Corpuscular Volume 84.7 fl (81-99); Mean Platelet Volume 10.6 fl (7.4-10.4); Monocytes # 0.6 K/mm3 (0.1-1.0); Monocytes % 12.1 % (1.7-9.3); Neutrophils % 57.2 % (37.0-80.0); Platelet Count 183 K/mm3 (142-424); Red Blood Count 3.79 M/mm3 (4.20-5.40); Red Cell Distribution Width 15.1 % (11.5-17.5); White Blood Count 5.3 K/mm3 (4.8-10.8)
[2024-12-19 19:00] LABS: Alanine Aminotransferase 29 U/L (12-78); Albumin Level 4.4 g/dl (3.5-5.0); Albumin/Globulin Ratio 1.7 (1.1-1.8); Alkaline Phosphatase 95 U/L (38-126); Anion Gap 11.2 mEq/L (5-15); Aspartate Amino Transferase 39 U/L (14-36); Bilirubin,Total 0.7 mg/dl (0.2-1.3); Blood Urea Nitrogen 13 mg/dl (7-17); Calcium 9.2 mg/dl (8.4-10.2); Carbon Dioxide 27 mmol/L (22.0-30.0); Chloride 103 mmol/L (98-107); Cholesterol 164 mg/dl (140-200); Estimated Glomerular Filt Rate 65 ml/min (>60); GFR (African American) 79 ML/MIN (>60); Globulin 2.6 g/dL (1.3-3.2); Glucose 95 mg/dl (74-100); HDL Cholesterol 41 mg/dl (40-60); Potassium 4.2 mmoL/L (3.5-5.1); Sodium 137 mmol/L (136-145); Triglycerides 111 mg/dl (30-150); VLDL Cholesterol 22 mg/dL (0-40)
[2024-12-19 19:10] LABS: Direct LDL Cholesterol 111.63 mg/dL (100-129)
[2024-12-19 19:15] LABS: 25-OH Vitamin D, Total 13.5 ng/mL (30-100)
[2024-12-19 19:29] LABS: Thyroid Stimulating Hormone 4.31 uIU/mL (0.465-4.68)
[2024-12-20 13:07] LABS: Iron 164 ug/dL (37-170)
[2024-12-20 13:16] LABS: Total Iron Binding Capacity 416 ug/dL (265-497)
== END 2024-12-19 23:59 | disposition home or self-care (01) ==
LOC: LAB.DROPOF 12-20 15:03
PROVIDERS: PCP Family Medicine; Visit Provider Family Medicine
DX: I10 Essential (primary) hypertension (principal); R69 Illness, unspecified; D50.9 Iron deficiency anemia, unspecified; D64.9 Anemia, unspecified
CPT/HCPCS: 80053; 80061; 82306; 83540; 83550; 84443; 85025; 87636

== ENCOUNTER 2025-05-15 12:58 | Outpatient (CLI) | payer BC, SELFPAY ==
--- NOTE | 2025-05-15 13:01 | XR_ITS ---
FINAL REPORT CLINICAL HISTORY: hip/groin pain COMPARISON: None FINDINGS: LEFT HIP: 3 views of the left hip, including an AP view of the pelvis, demonstrate no acute fracture or dislocation. The joint spaces appear normal. The visualized bony structures are well aligned. No soft tissue abnormality is seen. IMPRESSION: No acute bony abnormality. Reviewed, Interpreted and Dictated by Juarez Caldera MD Transcribed by Opal Guzman Authenticated and [facility] [place] [place]
== END 2025-05-15 23:59 | disposition home or self-care (01) ==
PROVIDERS: PCP Family Medicine; Visit Provider Family Medicine
DX: M25.559 Pain in unspecified hip (principal); R10.30 Lower abdominal pain, unspecified
CPT/HCPCS: 73502

== ENCOUNTER 2025-09-30 15:52 | Outpatient (CLI) | payer BC, SELFPAY ==
--- OUTSIDE RECORDS SUMMARY | 2025-09-30 15:55 | XMS_ITS | Clinical Summary ---
Author Organization [facility] Address [address], [address] [place] [address] Care Team Providers Care Cardiovascular Physician Assistant Name Role Phone Nohemi Li APRN - SMUDGER Primary Care Provider [phone] Family History Medical History Relation Name Comments Breast Cancer Maternal Aunt Breast Cancer Maternal Grandmother Relation Name Status Comments Maternal Aunt Alive Maternal Grandmother Social History Tobacco Use Types Packs/Day Years Used Date Smoking Tobacco: Never Assessed Comments No Sex and Gender Information Value Date Recorded Sex Assigned at Not on file Legal Sex Female 12:35 PM EDT Gender Identity Not on file Sexual Orientation Not on file Last Filed Vital Signs Vital Sign Reading Time Taken Comments Blood Pressure - - Pulse - - Temperature - - Respiratory Rate - - Oxygen Saturation - - Inhaled Oxygen Concentration - - Weight 114.8 kg (253 lb) 02/05/2025 10:56 AM EDT Height 162.6 cm (5' 4 ) 02/05/2025 10:56 AM EDT Body Mass Index 43.43 02/05/2025 10:56 AM EDT Plan of Treatment Health Maintenance Due Date Last Done Comments Depression Screen 1981 HIV screen 1984 Hepatitis C screen 1987 DTaP/Tdap/Td vaccine (1 - Tdap) 1988 Hepatitis B vaccine (1 of 3 - + 3-dose series) 1988 Pap smear 1990 Cervical cancer screen 1999 HPV (without or with Pap) 1999 Diabetes screen 2004 Lipids 2009 Colonoscopy 2014 Colorectal Cancer Screen 2014 FIT/FOBT: Average risk 2014 Fecal-DNA (Cologuard): [place] ge risk 2014 Sigmoidoscopy/CT colonography 2014 Pneumococcal 50+ years Vacci ne (1 of 1 - PCV) 2019 Shingles vaccine (1 of 2) 2019 Flu vaccine (#1) 06/20/2025 COVID-19 Vaccine (1 - 2023-2 5 season) 2025 Breast cancer screen 02/05/2027 02/05/2025 Hepatitis A vaccine Aged Out 11/06/2018 No longe r eligible based on patient's age to complete this topic Hib vaccine Aged Out No longer eligi ble based on patient's age to complete this topic Meningococcal (ACWY) vaccine Aged Out No longer eligible based on patient's age to complete this topic Meningococcal B vaccine Aged Out No l onger eligible based on patient's age to complete this topic Polio vaccine Aged Out No longer elig ible based on patient's age to complete this topic Procedures Procedure Name Priority Date/Time Associated Diagnosis Comments NIKKI REJI DIGITAL SCREEN BILATERAL Routine 02/05/2025 11:04 AM EDT Visit for screening mammogram from Last 3 Months or Most Recently Relevant to Health Maintenance Results * NIKKI REJI DIGITAL SCREEN BILATERAL (02/05/2025 11:04 AM EDT) Anatomical Region Laterality Modality Breast Bilateral Mammography 02/10/2025 12:5 1 PM EDT Impressions 02/10/2025 12:52 PM EDT RIGHT BREAST: No evidence of malignancy. LEFT BREAST: No evidence of malignancy. ACR BI-RADS Category: 1 (negative) RECOMMENDATIONS: Mammogram in one year. Please note that mammography is not 100% accurate in diagnosing breast cancer. A routine breast exam is recommended to correlate with mammographic findings. Any palpable abnormality must be assessed clinically. If the patient has a new palpable abnormality, then a Diagnostic Mammogram and/or Breast Ultrasound is indicated if clinically appropriate. Electronically signed by Amada Bedoya Performing Facility: [facility] [address] [place] [address] Narrative 02/10/2025 12:52 PM EDT EXAM: NIKKI REJI DIGITAL SCREEN BILATERAL INDICATION: Screening mammography. COMPARISON: Prior mammograms most recent 2023 TECHNIQUE: Digital mammographic and tomosynthesis images were obtained in MLO and CC projections. This study was performed and interpreted using Full Field Digital Mammography and Computer Aided Detection. LIFETIME RISK: TC 16.3% LIMITATIONS: none FINDINGS: BREAST DENSITY: There are scattered areas of fibroglandular density. RIGHT BREAST: There are no suspicious masses, calcifications, or architectural distortions. LEFT BREAST: There are no suspicious masses, calcifications, or architectural distortions. Nohemi Moran NP IMG MAMMOGRAPHY ORDERABLES Final Result from Last 3 Months or Most Recently Relevant to Health Maintenance Insurance Care Teams Cardiovascular Physician Assistant Relationship Specialty Start Date End Date Nohemi Li APRN - NP [id number] [place] [address] PCP - General Family Medicine 01/28/25
[2025-09-30 16:58] LABS: Hematocrit 32.7 % (37.0-47.0); Hemoglobin 10.1 g/dL (12.2-16.2); Immature Granulocytes % 0.2 %; Mean Corpuscular HGB Conc 30.9 g/dL (31.8-35.4); Mean Corpuscular Hemoglobin 26.9 pg (27.0-31.2); Mean Corpuscular Volume 87.0 fl (81-99); Nucleated Red Blood Cells % 0 %; Platelet Count 193 K/mm3 (142-424); Red Blood Count 3.76 M/mm3 (4.20-5.40); Red Cell Distribution Width-SD 45.3 fL; White Blood Count 4.8 K/mm3 (4.8-10.8)
[2025-09-30 17:39] LABS: Alanine Aminotransferase 37 U/L (12-78); Albumin Level 4.3 g/dl (3.5-5.0); Alkaline Phosphatase 80 U/L (38-126); Anion Gap 8.1 mEq/L (5-15); Aspartate Amino Transferase 45 U/L (14-36); Bilirubin,Direct 0.1 mg/dl (0.0-0.4); Bilirubin,Indirect 0.3 mg/dL (0.0-0.9); Bilirubin,Total 0.4 mg/dl (0.2-1.3); Bilirubin,Unconjugated 0.3 mg/dL (0.0-1.1); Blood Urea Nitrogen 12 mg/dl (7-17); Calcium 9.6 mg/dl (8.4-10.2); Carbon Dioxide 28 mmol/L (22.0-30.0); Chloride 105 mmol/L (98-107); Cholesterol 167 mg/dl (140-200); Creatinine,Serum 0.70 mg/dl (0.52-1.04); Estimated Glomerular Filt Rate 87 ml/min (>60); GFR (African American) 105 ML/MIN (>60); Glucose 84 mg/dl (74-100); HDL Cholesterol 48 mg/dl (40-60); Magnesium 2.1 mg/dl (1.6-2.3); Potassium 4.1 mmoL/L (3.5-5.1); Sodium 137 mmol/L (136-145); Total Protein,Serum 7.7 g/dl (6.3-8.2); Triglycerides 98 mg/dl (30-150)
[2025-09-30 17:53] LABS: Free T4 (Free Thyroxine) 0.79 ng/dl (0.78-2.19)
[2025-09-30 18:12] LABS: Thyroid Stimulating Hormone 2.56 uIU/mL (0.465-4.68)
== END 2025-09-30 23:59 | disposition home or self-care (01) ==
LOC: LAB 15:53
PROVIDERS: PCP Family Medicine; Visit Provider Physician Assistant
DX: I10 Essential (primary) hypertension (principal)
CPT/HCPCS: 36415; 80048; 80061; 80076; 83735; 84439; 84443; 85025